=== PATIENT | female | born 1985 | race Caucasian/White ===

== ENCOUNTER → 2019-04-11 | Outpatient (CLI) | payer SELFPAY | LOC: OD 09:27 | PROVIDERS: ATTEND Nurse Practitioner Primary Care | DX: Z31.83 Encounter for assisted reproductive fertility procedure cycle (principal) | CPT/HCPCS: 36415; 82670; 84144 ==

== ENCOUNTER → 2019-04-19 | Outpatient (CLI) | payer SELFPAY | LOC: OD 09:16 | PROVIDERS: ATTEND Nurse Practitioner Primary Care | DX: Z31.83 Encounter for assisted reproductive fertility procedure cycle (principal) | CPT/HCPCS: 36415; 82670; 84144 ==

== ENCOUNTER → 2019-07-19 | Outpatient (CLI) | payer SELFPAY | LOC: OD 10:28 | PROVIDERS: ATTEND Obstetrics & Gynecology Reproductive Endocrinology | DX: Z31.9 Encounter for procreative management, unspecified (principal) | CPT/HCPCS: 36415; 82670; 84144 ==

== ENCOUNTER → 2019-07-25 | Outpatient (CLI) | payer SELFPAY | LOC: OD 07:13 | PROVIDERS: ATTEND Nurse Practitioner Primary Care | DX: Z31.83 Encounter for assisted reproductive fertility procedure cycle (principal) | CPT/HCPCS: 36415; 82670; 84144 ==

== ENCOUNTER → 2019-07-29 | Outpatient (CLI) | payer SELFPAY | LOC: OD 07:05 | PROVIDERS: ATTEND Nurse Practitioner Primary Care | DX: Z31.83 Encounter for assisted reproductive fertility procedure cycle (principal) | CPT/HCPCS: 36415; 82670; 84144 ==

== ENCOUNTER → 2019-08-30 | Outpatient (CLI) | payer SELFPAY | LOC: OD 07:26 | PROVIDERS: ATTEND Obstetrics & Gynecology Reproductive Endocrinology | DX: Z31.9 Encounter for procreative management, unspecified (principal) | CPT/HCPCS: 36415; 82670; 84144 ==

== ENCOUNTER → 2019-09-16 | Outpatient (CLI) | payer SELFPAY | LOC: OD 07:06 | PROVIDERS: ATTEND Nurse Practitioner Primary Care | DX: Z31.83 Encounter for assisted reproductive fertility procedure cycle (principal) | CPT/HCPCS: 36415; 82670; 84144 ==

== ENCOUNTER → 2019-09-27 | Outpatient (CLI) | payer SELFPAY | LOC: OD 07:17 | PROVIDERS: ATTEND Nurse Practitioner Primary Care | DX: Z31.83 Encounter for assisted reproductive fertility procedure cycle (principal) | CPT/HCPCS: 36415; 82670; 84144 ==

== ENCOUNTER 2020-03-06 17:19 | Outpatient (CLI) | payer OTHER ==
[2020-03-06 18:03] LABS: APPEARANCE,URINE CLOUDY; BILIRUBIN,URINE NEGATIVE (NEGATIVE); COLOR,URINE AMBER; GLUCOSE, URINE NEGATIVE (NEGATIVE); KETONES,URINE 20 mg/dL (NEGATIVE); LEUKOCYTE ESTERASE,URINE MODERATE (NEGATIVE); NITRITE,URINE NEGATIVE (NEGATIVE); PROTEIN,URINE 30 mg/dL (NEGATIVE); URINE SPECIFIC GRAVITY 1.028
[2020-03-06 18:27] LABS: URINE AMPHETAMINES SCREEN NEGATIVE; URINE BARBITURATES SCREEN NEGATIVE; URINE BENZODIAZEPINES SCREEN NEGATIVE; URINE COCAINE SCREEN NEGATIVE; URINE MARIJUANA (THC) SCREEN NEGATIVE; URINE METHADONE SCREEN NEGATIVE; URINE PHENCYCLIDINE SCREEN NEGATIVE
--- NOTE | 2020-03-06 20:18 | Non Stress Test Report ---
Non Stress Test Datetime Report Generated by CPN: 03/06/2020 20:18 INDICATION Indication for Study (NST) Other: labor check URINE RESULTS Urine Protein, NST: Positive Urine Ketones - NST: Positive Urine Blood - NST: Positive MONITORING Monitor Explained: Monitor Explained; Test Explained; Patient Verbalized Understanding Time off Monitor: 03/06/2020 19:54 NST INTERVENTIONS NST Interventions: PO Hydration BABY A: [id number] BABY A Movement : Present Contraction Frequency : 2-8 FHR Baseline : 125 Accelerations : 15X15 Decelerations : None Variability : Moderate 6-25bpm NST Review: Meets Criteria for Reactive NST NST Results: Reactive NST REPORT Report Trigger: Send Report
== END 2020-03-06 20:03 | disposition hospice, inpatient (51) ==
LOC: LC 17:19
PROVIDERS: ATTEND Obstetrics & Gynecology Gynecology
DX: O47.03 False labor before 37 completed weeks of gestation, third trimester (principal); O09.523 Supervision of elderly multigravida, third trimester; Z3A.32 32 weeks gestation of pregnancy
CPT/HCPCS: 59025; 80307; 81001

== ENCOUNTER 2020-03-24 00:59 | Inpatient (IN) | payer OTHER ==
[2020-03-24] MEDS ORDERED: BETAMET ACET/BETAMET NA INJ 6 MG/1 ML ONE (02:08)
[2020-03-24] MEDS ORDERED: HYDROXYZINE PAMOATE 50 MG CAPSULE ONE (02:09)
[2020-03-24] MEDS ORDERED: RINGERS SOLUTION,LACTATED 1,000 ML IV ONE (02:30)
[2020-03-24] MEDS ORDERED: BETAMET ACET/BETAMET NA INJ 6 MG/1 ML IM ONE (02:30)
[2020-03-24] MEDS ORDERED: HYDROXYZINE PAMOATE 50 MG CAPSULE PO ONE (02:30)
[2020-03-24] MEDS ORDERED: TERBUTALINE SULFATE INJ/PF 1 MG/1 ML SDV ONE (02:48)
[2020-03-24] MEDS ORDERED: TERBUTALINE SULFATE INJ/PF 1 MG/1 ML SDV SUBCUT ONE (03:00)
[2020-03-24] MEDS ORDERED: RINGERS SOLUTION,LACTATED 1,000 ML IV PRN (03:32)
[2020-03-24] MEDS ORDERED: PENICILLIN G POTASSIUM 5,000,000 UNIT in DEXTROSE 5%-WATER 100 ML IV ONE (03:32)
[2020-03-24 03:33] LABS: APPEARANCE,URINE SLIGHTLY-CLOUDY; BILIRUBIN,URINE NEGATIVE (NEGATIVE); COLOR,URINE YELLOW; GLUCOSE, URINE NEGATIVE (NEGATIVE); KETONES,URINE NEGATIVE (NEGATIVE); LEUKOCYTE ESTERASE,URINE SMALL (NEGATIVE); NITRITE,URINE NEGATIVE (NEGATIVE); PROTEIN,URINE NEGATIVE (NEGATIVE); URINE SPECIFIC GRAVITY 1.013; UROBILINOGEN,URINE NEGATIVE mg/dL (<2.0)
[2020-03-24 03:42] LABS: URINE AMPHETAMINES SCREEN NEGATIVE; URINE BARBITURATES SCREEN NEGATIVE; URINE BENZODIAZEPINES SCREEN NEGATIVE; URINE COCAINE SCREEN NEGATIVE; URINE MARIJUANA (THC) SCREEN NEGATIVE; URINE METHADONE SCREEN NEGATIVE; URINE PHENCYCLIDINE SCREEN NEGATIVE
[2020-03-24] MEDS ORDERED: EPHEDRINE SULFATE INJ 50 MG/1 ML AMPULE ONE ×2 (03:49→09:31)
[2020-03-24] MEDS ORDERED: BUPIVACAINE HCL 0.25 % INJ/PF (2.5 MG/1 ML) 30 ML VIAL ONE (03:50)
[2020-03-24] MEDS ORDERED: FENTANYL/BUPIVACAINE/NS/PF 300 MCG/150 ML RTUINJ EPI ONE (03:50)
[2020-03-24 03:52] LABS: ABSOLUTE BASOPHILS # (AUTO) 0.1 10^3/uL (0.0-0.2); ABSOLUTE EOSINOPHILS # (AUTO) 0.1 10^3/uL (0.0-0.6); ABSOLUTE LYMPHOCYTES (AUTO) 1.5 10^3/uL (0.5-4.7); ABSOLUTE MONOCYTES (AUTO) 0.6 10^3/uL (0.1-1.4); ABSOLUTE NEUT (AUTO) 11.1 10^3/uL (1.7-8.2); BASOPHILS % (AUTO) 0.5 % (0-2); EOSINOPHILS % (AUTO) 0.6 % (0-6); HEMATOCRIT 28.2 % (36.0-47.0); HEMOGLOBIN 9.2 g/dL (12.0-15.5); LYMPHOCYTES % (AUTO) 11.1 % (13-45); MEAN CORPUSCULAR HEMOGLOBIN 26.1 pg (27.0-33.4); MEAN CORPUSCULAR HGB CONC 32.6 g/dL (32.0-36.0); MEAN CORPUSCULAR VOLUME 80 fl (80-97); MONOCYTES % (AUTO) 4.6 % (3-13); PLATELET COUNT 246 10^3/uL (150-450); RED BLOOD COUNT 3.51 10^6/uL (3.72-5.28); RED CELL DISTRIBUTION WIDTH 14.5 % (11.5-14.0); SEGMENTED NEUTROPHILS % (AUTO) 83.2 % (42-78); TOTAL CELLS COUNTED % (AUTO) 100 %; WHITE BLOOD COUNT 13.4 10^3/uL (4.0-10.5)
[2020-03-24] MEDS ORDERED: LIDOCAINE 1% INJ-PF (10 MG/ML) 30 ML SDV ONE (03:57)
[2020-03-24] MEDS ORDERED: OXYTOCIN 10 UNIT/ML VIAL ONE (03:57)
[2020-03-24] MEDS ORDERED: OXYTOCIN/0.9 % SODIUM CHLORIDE 30 UNIT/500 ML RTUINJ ONE (03:57)
[2020-03-24] MEDS ORDERED: MISOPROSTOL 0.2 MG TABLET ONE (03:57)
[2020-03-24] MEDS ORDERED: PENICILLIN G-K 5 MILLION UNIT VIAL ONE (04:05)
--- NOTE | 2020-03-24 06:45 | Admission Physical ---
Datetime Report Generated by CPN: 03/24/2020 06:44 CURRENT ADMISSION Chief Complaint: Uterine Contractions; Suspected Ruptured Membranes Indication for Induction: PROM Admit Impression : , Intrauterine ; Active Labor; Ruptured Membranes Admit Plan: Admit to Unit; Initiate Labor Protocol ALLERGIES Medication Allergies: No Medication Allergies: No Known Allergies (03/06/2020) Latex: No Latex Allergies Food Allergies: none Environmental Allergies: none OBSTETRICAL HISTORY EDC: 04/25/2020 00:00 : 3 Para: 2 Term: 2 Livin Gestational Diabetes: No Rh Sensitization: No Incompetent Cervix: No ELOISA: No Infertility: No ART Treatment: Yes Uterine Anomaly: No IUGR: No Hx Previous C/S: No Macrosomia: No Hx Loss/Stillborn: No PIH: No Hx : No Placenta Previa/Abruption: No Depression/PP Depression: No PTL/PROM: No Post Hemorrhage: No Current Procedures: Ultrasound Obstetrical History Comments: 2008 40.3 weeks 6#7 oz G2- 2009 38 weeks 7# 2oz G3- current; surrogate SEE RECORDS Alcohol: No Marijuana : No Cocaine: No Other Illicit Drugs: No Cigarettes: Never Smoker. 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 Surgery: No Heart Disease: No Hosp/Surgery: Yes Autoimmune Disorder: No Anesthetic Complications: No Kidney Disease: No Abnormal Pap Smear: No Neuro/Epilepsy: No Psychiatric Disorders: No Other Medical Diseases: No Hepatitis/Liver Disease: No Significant Family History: No Varicosities/Phlebitis: No Trauma/Violence : No Thyroid Dysfunction: No Medical History Comments: childbirth, IVF- surrogate , breast augmentation -2006, hemorroidectomy- 2012, eye surgery 2015 _ 2016, mensuis repair- 2017, INFECTIOUS HISTORY Gonorrhea: No Genital Herpes: No Chlamydia: No Tuberculosis: No Syphilis: No Hepatitis: No HIV/AIDS Exposure: No Rash or Viral Illness: No HPV: No PHYSICAL EXAM General: Normal HEENT: Normal Neurologic: Normal Thyroid: Normal Heart: Normal Lungs: Normal Breast: Normal Back: Normal Abdomen: Normal Genitourinary Exam: Normal Extremities: Normal DTRs: Normal Pelvic Type: Adequate Vital Signs: Reviewed; Within Normal Limits VAGINAL EXAM Dilatation: 4 Effacement: 90 Station: -1 MEMBRANES Pooling: Positive Membranes: Ruptured Amniotic Fluid Color: Clear FETUS A EGA: 35.3 Monitoring: External US FHR- Baseline: 140 Variability: Moderate 6-25bpm Accelerations: 15X15 Decelerations: None FHR Category: Category I Estimated Weight (gm): 3200 Presentation: Vertex Admit Comment: [place]. [place] is planning to come as soon as he can get through quarantine process. (should be laer today) INFORMED CONSENT Signature: with User ID: [email or web address]
[2020-03-24] MEDS ORDERED: PENICILLIN G POTASSIUM 2,500,000 UNIT in DEXTROSE 5%-WATER 50 ML IV SCH (07:33)
[2020-03-24] MEDS ORDERED: PSEUDOEPHEDRINE HCL 30 MG TABLET PO PRN (08:45)
[2020-03-24] MEDS ORDERED: GLYCERIN/WITCH HAZEL LEAF 1 EACH MED..WIPE TP PRN (08:45)
[2020-03-24] MEDS ORDERED: ZOLPIDEM TARTRATE 5 MG TABLET PO PRN (08:45)
[2020-03-24] MEDS ORDERED: PROMETHAZINE HCL 25 MG SUPP.RECT PR PRN (08:45)
[2020-03-24] MEDS ORDERED: DIBUCAINE 1% OINTMENT 28 GM TP PRN (08:45)
[2020-03-24] MEDS ORDERED: MAGNESIUM HYDROXIDE SUSP 30 ML UDCUP PO PRN (08:45)
[2020-03-24] MEDS ORDERED: MEASLES,MUMPS&RUBELLA VACC/PF 0.5 ML VIAL SUBCUT PRN (08:45)
[2020-03-24] MEDS ORDERED: ACETAMINOPHEN WITH CODEINE #3 TABLET PO PRN ×2 (08:45)
[2020-03-24] MEDS ORDERED: IBUPROFEN 800 MG TABLET PO SCH (08:45)
[2020-03-24] MEDS ORDERED: PROMETHAZINE HCL 25 MG TABLET PO PRN (08:45)
[2020-03-24] MEDS ORDERED: NA PHOS,M-B/NA PHOS,DI-BA (ADULT) 133 ML ENEMA PR PRN (08:45)
[2020-03-24] MEDS ORDERED: OXYTOCIN/0.9 % SODIUM CHLORIDE 30 UNIT/500 ML RTUINJ IV PRN (08:45)
[2020-03-24] MEDS ORDERED: BENZOCAINE/MENTHOL AEROSOL SPRAY 56 ML TOP PRN (08:45)
[2020-03-24] MEDS ORDERED: ACETAMINOPHEN 650 MG SUPP.RECT PR PRN (08:45)
[2020-03-24] MEDS ORDERED: PROMETHAZINE HCL INJ 25 MG/1 ML VIAL IV PRN (08:45)
[2020-03-24] MEDS ORDERED: DIPHENHYDRAMINE HCL 25 MG CAPSULE PO PRN (08:45)
[2020-03-24] MEDS ORDERED: DIPH/PERTUSS(ACELL)/TETANUS VAC/PF 0.5 ML SYR (>=10YO) IM PRN (08:45)
[2020-03-24] MEDS ORDERED: BENZOCAINE/MENTHOL AEROSOL SPRAY 56 ML ONE (09:17)
--- NOTE | 2020-03-24 11:11 | Delivery Summary ---
Del Sum A-C Datetime Report Generated by CPN: 03/24/2020 11:10 DELIVERY PERSONNEL DELIVERY PERSONNEL: [id number] Delivery Doctor:: Fatoumata Hahn CNM Nurse Graphic Design Teacher Certified:: Fatoumata Hahn CNM Labor and Delivery Nurse:: Brigida Vo RNframe feeder Nurse:: LAY Garcia Nursery Nurse:: Carolyn Reynoso RN Nursery Nurse:: Dory Silver RN Commissioned Security Officer/RETAIL SALESPERSON: Josefina Rios CST Commissioned Security Officer/RETAIL SALESPERSON: Paige Arvizu CST Additional Personnel: : Meghann Suero RN MATERNAL INFORMATION Delivery Anesthesia: Epidural Medications After Delivery: Pitocin 30 Units in 500ml NS/D5W Delivery QBL: 250 Maternal Complications: Premature Rupture of Membranes Provider Comments: HERMAN VIABLE MALE INFANT WITH SPONTANEOUS CRY. CORD DOUBLE CLAMPED AND CUT. SPONTANEOUS INTACT PLACENTA WITH 3VC. SMALL LACERATION REPAIRED STATED ABOVE. NURSERY RN IN ROOM FOR DELIVERY D/T . PLACENTA SENT TO PATHOLOGY. MOTHER AND STABLE IN L_D #2. LABOR SUMMARY EDC: 04/25/2020 00:00 No. Babies in Womb: 1 Attempted: No Labor Anesthesia: Epidural LABOR INFORMATION Reason for Induction: Not Applicable Onset of Labor: 03/24/2020 02:55 Complete Dilatation: 03/24/2020 08:35 Oxytocin: N/A Group B Beta Strep: Unknown Antibiotics # of Doses: 1 Antibiotics Time of Last Dose: 0410 Name of Antibiotic Given: PCN Steroids Given: Partial Course Reason Steroids Not Administered: Not Applicable MEMBRANES Membranes Rupture Method: Spontaneous Rupture of Membranes: 03/24/2020 02:55 Length of Rupture (hr): 5.82 Amniotic Fluid Color: Clear Amniotic Fluid Amount: Small Amniotic Fluid Odor: Normal STAGES OF LABOR Stage 1 hr: 5 Stage 1 min: 40 Stage 2 hr: 0 Stage 2 min: 9 Stage 3 hr: 0 Stage 3 min: 3 Total Time in Labor hr: 5 Total Time in Labor min: 52 VAGINAL DELIVERY Episiotomy: None Laceration #1: Perineal Laceration Extension #1: First Degree Laceration Repair: Yes Laceration Repair Note: first degree laceration repaired under epidural and local anesthes Sponge Count Correct: Yes Sharps Count Correct: Yes CSECTION DELIVERY Primary Indication: N/A Secondary Indication: N/A CSection Incidence: N/A Labor: N/A Elective: N/A CSection Incision: N/A BABY A INFORMATION Infant Delivery Date/Time: 03/24/2020 08:44 Method of Delivery: Vaginal Nurse Controlled Delivery: No Born in Route : No : N/A Forceps: N/A Vacuum Extraction: N/A Shoulder Dystocia : No PRESENTATION/POSITION BABY A Presentation: Cephalic Cephalic Presentation: Vertex Vertex Position: Right Occipital Anterior Breech Presentation: N/A PLACENTA INFORMATION BABY A Placenta Delivery Time : 03/24/2020 08:47 Placenta Method of Delivery: Spontaneous Placenta Status: Delivered SCORES BABY A Heart Rate 1 min: >100 bpm Resp Effort 1 min: Good Cry Reflex Irritability 1 min: Cough or Sneeze or Pulls Away Muscle Tone 1 min: Active Motion Color 1 min: Body [place], Extremities Blue Resuscitation Effort 1 min: Tactile Stimulation SCORE 1 MIN: 9 Heart Rate 5 min: >100 bpm Resp Effort 5 min: Good Cry Reflex Irritability 5 min: Cough or Sneeze or Pulls Away Muscle Tone 5 min: Active Motion Color 5 min: Body [place], Extremities Blue Resuscitation Effort 5 min: N/A SCORE 5 MIN: 9 Resuscitation Effort 10 min: N/A INFORMATION BABY A Gestational Age at Delivery: 35.3 Gestational Status: Late - 34- 36.6 Weeks Infant Condition : Stable Sex: Male IDENTIFICATION BABY A Infant Verification Date/Time: 03/24/2020 08:58 ID Band Number: [id number] Mother's Name Verified: Yes Infant RN Verifying Infant: Naila [place] [facility] Additional Verifying Personnel: Brigida Vo RN CORD INFORMATION BABY A No. Cord Vessels: 3 Nuchal Cord : N/A Cord Blood Taken: Yes-For Storage (Mom's Blood type +) Suction: None ASSESSMENT BABY A Complications: Multiple Late Decels Physical Findings- Other: see nursery Skin to Skin Time (min): n/a Wet Primer Powder Blender/ALS Called : No Care By: Angelica Reynoso/ C [place] Transferred To: [facility] BABY B INFORMATION : N/A SIGNATURES Assignment: Mayra Alejandra MD Signature: with User ID: [email or web address] : with User ID: [email or web address] : I was personally available for consultation and serving as supervising physician for the MLP.
[2020-03-24] MEDS: PRENATAL VITAMIN W DHA CAPSULE PO SCH (11:16)
[2020-03-24] MEDS: DOCUSATE SODIUM 100 MG CAPSULE PO SCH ×2 (11:16→17:14)
[2020-03-24] MEDS: FERROUS SULFATE 325 MG TABLET PO SCH ×2 (11:16→17:14)
[2020-03-24] MEDS: SENNOSIDES/DOCUSATE 8.6-50 MG 1 EACH TABLET PO SCH (11:17)
[2020-03-24] MEDS: FAMOTIDINE 20 MG TABLET PO SCH ×2 (11:17→21:59)
[2020-03-25 07:01] LABS: HEMATOCRIT 25.4 % (36.0-47.0); HEMOGLOBIN 8.2 g/dL (12.0-15.5); MEAN CORPUSCULAR HGB CONC 32.3 g/dL (32.0-36.0); MEAN CORPUSCULAR VOLUME 80 fl (80-97); PLATELET COUNT 260 10^3/uL (150-450); RED BLOOD COUNT 3.16 10^6/uL (3.72-5.28); RED CELL DISTRIBUTION WIDTH 14.5 % (11.5-14.0); WHITE BLOOD COUNT 18.9 10^3/uL (4.0-10.5)
[2020-03-25] MEDS: FAMOTIDINE 20 MG TABLET PO SCH (09:34)
[2020-03-25] MEDS: PRENATAL VITAMIN W DHA CAPSULE PO SCH (09:34)
[2020-03-25] MEDS: SENNOSIDES/DOCUSATE 8.6-50 MG 1 EACH TABLET PO SCH (09:34)
[2020-03-25] MEDS: FERROUS SULFATE 325 MG TABLET PO SCH (09:34)
[2020-03-25] MEDS: DOCUSATE SODIUM 100 MG CAPSULE PO SCH (09:34)
--- NOTE | 2020-03-25 10:45 | PDOC PROGRESS REPORT ---
Subjective-OB Progress Note for:: 03/25/20 Subjective: Doing well, ready to go home,Father is getting covid test now, when he gets results back he will come and take care of and she will go home, bottle feeding, hsb at bs, no c/o Physical Exam (OB) Vital Signs: Temp Pulse Resp BP Pulse Ox 98.1 F 57 L 16 135/74 H 100 03/25/20 07:47 03/25/20 07:47 03/25/20 07:47 03/25/20 07:47 03/25/20 07:47 Intake & Output 03/24/20 03/25/20 03/26/20 06:59 06:59 06:59 Weight 78 kg - PIH/Pre-Eclampsia DTR's: 2 + Clonus: Negative Headache: Absent Epigastric Pain: No Visual Changes: No - Lochia Lochia Amount: Scant < 10 ml Lochia Color: Rubra/Red - Abdomen Description: Soft Hernia Present: No Fundal Description: Firm Fundal Height: 1/u - 2/u Objective-Diagnostic Laboratory: 03/25/20 06:27 03/25/20 06:27 WBC 18.9 H RBC 3.16 L Hgb 8.2 L Hct 25.4 L MCV 80 MCH 26.0 L MCHC 32.3 RDW 14.5 H Plt Count 260 Assessment and Plan(PN) - Assessment and Plan (1) Perineal laceration during delivery Qualifiers: Perineal laceration degree: first degree Qualified Code(s): O70.0 - First degree perineal laceration during delivery Is this a current diagnosis for this admission?: Yes (2) AMA (advanced maternal age) multigravida 35+ Qualifiers: Trimester: first trimester Qualified Code(s): O09.521 - Supervision of elderly multigravida, first trimester Is this a current diagnosis for this admission?: Yes (3) Surrogate Is this a current diagnosis for this admission?: Yes (4) labor in third trimester with delivery Qualifiers: Fetus number: single or unspecified fetus Qualified Code(s): O60.14X0 - labor third trimester with delivery third trimester, not applicable or unspecified Is this a current diagnosis for this admission?: Yes - Time Spent with Patient Time with patient: Less than 15 minutes Medications reviewed and adjusted accordingly: Yes - Disposition Anticipated Discharge: Home Within: within 24 hours
--- NOTE | 2020-03-25 10:48 | PDOC DISCHARGE SUMMARY ---
Impression - Admit/DC Date/PCP Admission Date/Primary Care Provider: 03/24/20 03:37 JACOB MELÉNDEZ MD Discharge Date: 03/25/20 - Discharge Diagnosis (1) Perineal laceration during delivery Is this a current diagnosis for this admission?: Yes (2) AMA (advanced maternal age) multigravida 35+ Is this a current diagnosis for this admission?: Yes (3) Surrogate Is this a current diagnosis for this admission?: Yes (4) labor in third trimester with delivery Is this a current diagnosis for this admission?: Yes - Additional Information Resuscitation Status: Full Code Discharge Diet: As Tolerated, Regular Discharge Activity: Activity As Tolerated, No Lifting Over 10 Pounds, No Lifting/Push/Pulling, Pelvic Rest Referrals: JACOB MELÉNDEZ MD [Primary Care Provider] - (4 weeks [facility]) Home Medications: Vits96/Iron Fum/Folic [ Tablet] 1 tab PO DAILY 03/06/20 HPI Gestational Age: 35.3 Reason(s) for Admission: Onset of Labor Procedures: NST, Ultrasound Intrapartum Procedure(s): Spontaneous Vaginal Delivery Complication(s): Laceration-Perineal Laceration-Degree: 1st Hospital Course Hospital Course: routine Results Laboratory Results: WBC 18.9 10^3/uL (4.0-10.5) H 03/25/20 06:27 RBC 3.16 10^6/uL (3.72-5.28) L 03/25/20 06:27 Hgb 8.2 g/dL (12.0-15.5) L 03/25/20 06:27 Hct 25.4 % (36.0-47.0) L 03/25/20 06:27 MCV 80 fl (80-97) 03/25/20 06:27 MCH 26.0 pg (27.0-33.4) L 03/25/20 06:27 MCHC 32.3 g/dL (32.0-36.0) 03/25/20 06:27 RDW 14.5 % (11.5-14.0) H 03/25/20 06:27 Plt Count 260 10^3/uL (150-450) 03/25/20 06:27 Lymph % (Auto) 11.1 % (13-45) L 03/24/20 03:41 [place] % (Auto) 4.6 % (3-13) 03/24/20 03:41 Eos % (Auto) 0.6 % (0-6) 03/24/20 03:41 Baso % (Auto) 0.5 % (0-2) 03/24/20 03:41 Absolute Neuts (auto) 11.1 10^3/uL (1.7-8.2) H 03/24/20 03:41 Absolute Lymphs (auto) 1.5 10^3/uL (0.5-4.7) 03/24/20 03:41 Absolute Monos (auto) 0.6 10^3/uL (0.1-1.4) 03/24/20 03:41 Absolute Eos (auto) 0.1 10^3/uL (0.0-0.6) 03/24/20 03:41 Absolute Basos (auto) 0.1 10^3/uL (0.0-0.2) 03/24/20 03:41 Seg Neutrophils % 83.2 % (42-78) H 03/24/20 03:41 Urine Color YELLOW 03/24/20 02:50 Urine Appearance SLIGHTLY-CLOUDY 03/24/20 02:50 Urine pH 6.0 (5.0-9.0) 03/24/20 02:50 Ur Specific [place] 1.013 03/24/20 02:50 Urine Protein NEGATIVE mg/dL (NEGATIVE) 03/24/20 02:50 Urine Glucose (UA) NEGATIVE mg/dL (NEGATIVE) 03/24/20 02:50 Urine Ketones NEGATIVE mg/dL (NEGATIVE) 03/24/20 02:50 Urine Blood LARGE (NEGATIVE) H 03/24/20 02:50 Urine Nitrite NEGATIVE (NEGATIVE) 03/24/20 02:50 Urine Bilirubin NEGATIVE (NEGATIVE) 03/24/20 02:50 Urine Urobilinogen NEGATIVE mg/dL (<2.0) 03/24/20 02:50 Ur Leukocyte Esterase SMALL (NEGATIVE) H 03/24/20 02:50 Urine WBC (Auto) 16 /HPF 03/24/20 02:50 Urine RBC (Auto) 75 /HPF 03/24/20 02:50 Squamous Epi Cells Auto 3 /HPF 03/24/20 02:50 Urine Mucus (Auto) RARE /LPF 03/24/20 02:50 Urine Ascorbic Acid NEGATIVE (NEGATIVE) 03/24/20 02:50 Membranes Rupture POSITIVE (NEGATIVE) H 03/24/20 03:00 Urine Opiates Screen NEGATIVE 03/24/20 02:50 Urine Methadone Screen NEGATIVE 03/24/20 02:50 Ur Barbiturates Screen NEGATIVE 03/24/20 02:50 Ur Phencyclidine Scrn NEGATIVE 03/24/20 02:50 Ur Amphetamines Screen NEGATIVE 03/24/20 02:50 U Benzodiazepines Scrn NEGATIVE 03/24/20 02:50 Urine Cocaine Screen NEGATIVE 03/24/20 02:50 U Marijuana (THC) Screen NEGATIVE 03/24/20 02:50 RPR NONREACTIVE (NONREACTIVE) 03/24/20 03:41 Blood Type A POSITIVE 03/24/20 03:41 Antibody Screen NEGATIVE 03/24/20 03:41 Plan Health Concerns: routine Plan of Treatment: discharge home, PNV's Goals: no complications Time Spent: Less than 30 Minutes
[2020-03-25 10:52] VITALS: BP 121/64
== END 2020-03-25 12:12 | disposition home or self-care (01) | DRG 807 ==
LOC: LC 00:59 → LR 03:37 → 2S 10:56
PROVIDERS: ADMIT Obstetrics & Gynecology; ATTEND Obstetrics & Gynecology
PROC: 10E0XZZ Delivery of Products of Conception, External Approach (ICD-10-PCS; principal; 2020-03-24)
PROC: 0HQ9XZZ Repair Perineum Skin, External Approach (ICD-10-PCS; 2020-03-24)
DX: O60.14X0 Preterm labor third trimester with preterm delivery third trimester, not applicable or unspecified (principal); Z37.0 Single live birth; O70.0 First degree perineal laceration during delivery; Z3A.35 35 weeks gestation of pregnancy
CPT/HCPCS: 1967; 36415; 80307; 81001; 84112; 85025; 85027; 86592; 86850; 86900; 86901; 88307; 94760; J0702; J2540; J2590; J3010; J3105; J3490